=== PATIENT | male | born 1975 | race American Indian/Alaskan Native ===

== ENCOUNTER 2022-02-24 11:43 | Outpatient (CLI) | payer OTHER ==
[2022-03-07 18:05] LABS: CD4/CD8 Ratio 0.32 (0.86-5.00)
== END 2022-02-24 11:44 | disposition home or self-care (01) ==
LOC: LAB 11:43
PROVIDERS: ATTEND Internal Medicine
DX: Z02.71 Encounter for disability determination (principal)
CPT/HCPCS: 36415; 82024